=== PATIENT | female | born 2000 | race Caucasian/White ===

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

== ENCOUNTER → 2021-03-26 11:51 | Outpatient (CLI) | payer OTHER, SELFPAY ==
--- NOTE | 2021-03-26 12:01 | XR_ITS ---
PROCEDURE INFORMATION: Exam: XR Left Wrist Exam date and time: 03/26/2021 12:01 PM Age: 20 years old Clinical indication: Pain; Wrist; Left TECHNIQUE: Imaging protocol: XR Left wrist. Views: 1 or 2 views. COMPARISON: No relevant prior studies available. FINDINGS: Bones/joints: There is no evidence of acute fracture.There is no evidence of malalignment or dislocation. Soft tissues: Normal. IMPRESSION: There is no evidence of acute fracture.There is no evidence of malalignment or dislocation.
== END ==
PROVIDERS: PCP Nurse Practitioner Family; Referring Provider Nurse Practitioner; Visit Provider Nurse Practitioner Family
DX: M25.532 Pain in left wrist (principal)
CPT/HCPCS: 73100

== ENCOUNTER 2022-04-04 15:12 | Emergency (ER) | payer OTHER, SELFPAY ==
--- NOTE | 2022-04-04 15:20 | EXP.UTC ---
Discharge Plan Disposition Patient Disposition: Home, Self-Care Condition: Good Prescriptions Prescriptions: New phenazopyridine [Pyridium] 200 mg tablet 200 mg PO Q8H 2 Days Qty: 6 0RF sulfamethoxazole-trimethoprim [Bactrim DS] 800-160 mg Tablet 1 tab PO BID Qty: 14 0RF No Action montelukast 10 MG tablet 10 mg PO HS albuterol sulfate 8.5 GM HFA aerosol inhaler 1 puff PO Q4HP PRN (Reason: ALLERGIES) Label Comments: INHALE 1 OR 2 PUFFS EVERY 4 HOURS NEEDED loratadine 10 MG tablet 10 mg PO DAILY fluticasone furoate-vilanterol 1 EACH blister with device 1 puff PO DAILY Label Comments: INHALE 1 DOSE 1 TIME EACH DAY, AT THE SAME TIME EACH DAY. ibuprofen 600 MG tablet 600 mg PO Q6HP PRN (Reason: Mild Pain) Qty: 30 0RF Referrals Follow up/Referrals: Iris Olsen APRN [Primary Care Provider] - See instructions Activity Restrictions/Add. Instructions Additional Instructions/Restrictions: Drink plenty of fluids. Take tylenol or ibuprofen for pain or fever. Take the medications as directed. Follow up with your regular doctor. GO TO THE ER FOR ANY WORSENING SYMPTOMS RETURN AND GO TO THE ER FOR FURTHER EVALUATION IF YOUR PAIN OR SYMPTOMS WORSEN The pyridium will make your urine turn orange, this is an expected side effect. It will stain your clothes if it comes into contact with them. We will culture the urine. That will tell what bacteria is causing your infection and which antibiotics will treat it best. Sometimes the first antibiotic we prescribe turns out to not work against different bacteria. So, make sure you follow up within 3 days if you are not getting better. Clinical Impressions Clinical Impression: UTI (urinary tract infection) Discharge ED Provider: Crow Jaeger [facility] General Stated complaint: R side [id number] Time Seen by Provider: 04/04/22 16:00 History of Present Illness Provider Complaint: She has had right sided lower back pain for the past 2 days. She has also had urinary frequency and dysuria. Related Data Home Medications Medication Instructions Recorded Confirmed albuterol sulfate 90 mcg/actuation 1 puff PO Q4HP PRN ALLERGIES 07/10/19 07/10/19 aerosol inhaler fluticasone furoate 100 1 puff PO DAILY ALLERGIES 07/10/19 07/10/19 mcg-vilanterol 25 mcg/dose inhalation powder loratadine 10 mg tablet 10 mg PO DAILY ALLERGIES 07/10/19 07/10/19 montelukast 10 mg tablet 10 mg PO HS ALLERGIES 07/10/19 07/10/19 Previous Rx's Medication Instructions Recorded ibuprofen 600 mg tablet 600 mg PO Q6HP PRN Mild Pain #30 07/10/19 tabs phenazopyridine 200 mg tablet 200 mg PO Q8H 2 days #6 tabs 04/04/22 (Pyridium) sulfamethoxazole 800 1 tab PO BID #14 tabs 04/04/22 mg-trimethoprim 160 mg tablet (Bactrim DS) Allergies Allergy/AdvReac Type Severity Reaction Status Date / Time No Known Allergies Allergy Verified 04/04/22 15:50 PFSH PFSH Social History Smoking Status: Never smoker alcohol intake: never current occupational status: student Travel in the last 8 weeks: None ROS Obtained: Yes All systems reviewed & no additional complaints except as documented Constitutional Constitutional: Reports system reviewed and no additional complaints, except as documented, Denies chills and Denies fever(s) Eyes Eyes: Denies eye discharge ENT Ears, Nose, Mouth, and Throat: Denies dysphagia, Denies sore throat and Denies throat swelling Cardiovascular Cardiovascular: Denies chest pain and Denies dyspnea Respiratory Respiratory: Denies chest congestion, Denies cough and Denies dyspnea Gastrointestinal Gastrointestingal: Denies abdominal pain, constipation, diarrhea, dysphagia, nausea or vomiting Genitourinary Female Genitourinary: Reports as per HPI, Reports dysuria, Reports sexual dysfunction, Reports urinary frequency, Denies urinary incontinence and Reports urinary hesitancy Musculoske
[2022-04-04 15:48] VITALS: BP 125/68; PULSE 80; RESP 16; TEMP 36.9; O2SAT 99; BMI 35.4
[2022-04-04 15:55] LABS: Apearance,Urine Clear (Clear); Color,Urine Yellow (Yellow); PH,Urine 6.5 (5.0-8.5)
[2022-04-04 15:56] LABS: Bilirubin,Urine Negative (Negative); Blood, Urine 3+ (Negative); Glucose,Urine (UA) Negative (Negative); Ketones,Urine Negative (Negative); Protein,Urine Negative (Negative); Specific Gravity, Urine >= 1.030 (1.005-1.030); UTC Leukocyte Esterase,Urine 1+ (Negative); UTC Nitrate,Urine Negative (Negative); Urobilinogen,Urine 0.2 EU/dl (0.2)
[2022-04-04 16:41] VITALS: BP 125/68; PULSE 80; RESP 16; TEMP 36.9
== END 2022-04-04 16:45 | disposition home or self-care (01) ==
PROVIDERS: Emergency Provider Nurse Practitioner Family; PCP Nurse Practitioner
DX: N39.0 Urinary tract infection, site not specified (principal)
CPT/HCPCS: 81003; 87086; 99212; G0463

== ENCOUNTER → 2022-06-06 12:55 | Outpatient (CLI) | payer OTHER, SELFPAY ==
[2022-06-06 13:50] VITALS: PULSE 84; PULSE 87
== END ==
PROVIDERS: PCP Nurse Practitioner Family; Visit Provider Nurse Practitioner Family
DX: J45.909 Unspecified asthma, uncomplicated (principal)
CPT/HCPCS: 94060; 94618; 94640; 94727; 94729

== ENCOUNTER 2023-09-21 18:51 | Outpatient (CLI) | payer OTHER, SELFPAY ==
[2023-09-21 18:20] LABS: Basophils # 0.1 K/mm3 (0-0.2); Basophils % 0.8 % (0.1-2.0); Eosinophils # 1.1 K/mm3 (0.0-0.4); Eosinophils % 9.9 % (0.1-12.0); Hematocrit 44.6 % (37.0-47.0); Hemoglobin 14.8 g/dL (12.2-16.2); Lymphocytes # 2.8 K/mm3 (0.7-4.5); Mean Corpuscular HGB Conc 33.1 g/dL (31.8-35.4); Mean Corpuscular Hemoglobin 28.9 pg (27.0-31.2); Mean Corpuscular Volume 87.3 fl (81-99); Mean Platelet Volume 9.5 fl (7.4-10.4); Monocytes # 0.4 K/mm3 (0.1-1.0); Monocytes % 3.7 % (1.7-9.3); Neutrophils # 6.4 K/mm3 (1.8-7.8); Neutrophils % 59.5 % (37.0-80.0); Platelet Count 409 K/mm3 (142-424); Red Blood Count 5.11 M/mm3 (4.20-5.40); Red Cell Distribution Width 13.1 % (11.5-17.5); White Blood Count 10.7 K/mm3 (4.8-10.8)
[2023-09-21 18:38] LABS: Chloride 110 mmol/L (98-107); Potassium 4.4 mmoL/L (3.5-5.1); Sodium 140 mmol/L (136-145)
[2023-09-21 18:41] LABS: Alanine Aminotransferase 24 U/L (12-78); Albumin Level 4.5 g/dl (3.5-5.0); Albumin/Globulin Ratio 1.7 (1.1-1.8); Alkaline Phosphatase 72 U/L (38-126); Anion Gap 13.4 mEq/L (5-15); Aspartate Amino Transferase 30 U/L (14-36); Bilirubin,Total 0.5 mg/dl (0.2-1.3); Blood Urea Nitrogen 6 mg/dl (7-17); Calcium 9.4 mg/dl (8.4-10.2); Carbon Dioxide 21 mmol/L (22.0-30.0); Chol/HDL Ratio 4.9 (1-3.5); Cholesterol 165 mg/dl (140-200); Estimated Glomerular Filt Rate 104 ml/min (>60); GFR (African American) 125 ML/MIN (>60); Globulin 2.7 g/dL (1.3-3.2); Glucose 104 mg/dl (74-100); HDL Cholesterol 34 mg/dl (40-60); Total Protein,Serum 7.2 g/dl (6.3-8.2); Triglycerides 101 mg/dl (30-150); VLDL Cholesterol 20 mg/dL (0-40)
[2023-09-21 18:53] LABS: Direct LDL Cholesterol 99.97 mg/dL (100-129)
[2023-09-21 19:13] LABS: Thyroid Stimulating Hormone 1.32 uIU/mL (0.465-4.68)
== END 2023-09-21 23:59 ==
LOC: LAB.DROPOF 18:52
PROVIDERS: PCP Family Medicine; Visit Provider Family Medicine
DX: R30.0 Dysuria (principal); M54.50 Low back pain, unspecified; N39.0 Urinary tract infection, site not specified; B96.89 Other specified bacterial agents as the cause of diseases classified elsewhere; Z79.899 Other long term (current) drug therapy
CPT/HCPCS: 80053; 80061; 83036; 84443; 85025; 87086

== ENCOUNTER 2025-03-31 10:32 | Outpatient (CLI) | payer OTHER, SELFPAY ==
--- OUTSIDE RECORDS SUMMARY | 2025-04-01 08:54 | XMS_ITS | Clinical Summary ---
Author Organization [employer] ([place], [place], [place], [place]) Address [address] [place] [address] Care Team Providers Care Furniture Refinisher Name Role Phone Benedict Higginbotham APRN Primary Care Provider [phone] Allergies No known active allergies Medications No known medications Active Problems No known active problems Social History Tobacco Use Types Packs/Day Years Used Date Smoking Tobacco: Never Smokeless Tobacco: Never Tobacco Cessation:Counseling Given: Not Answered Alcohol Use Standard Drinks/Week Comments Never 0 (1 standard drink = 0.6 oz pur e alcohol) Family and Community Support Answer Anjel e Recorded Help with Day to Day Activities Not on file 07/21/2023 Feeling Lonely or Isolated Not on file 07/21 Educational Attainment Answer Date Adalberto rded Speak language other than Tajik at home Not on file 07/21/2023 Want help with school or training Not on file 07/21/2023 Substance Use Answer Date Recorded Used prescription meds for non-medical reasons N ot on file 07/21/2023 Used illegal drugs past 12 months Not on file 07/21/2023 Comments Unknown Sex and Gender Information Value Date Recorded Sex Assigned at Not on file 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 Gender Identity Not on file Sexual Orientation Not on file Last Filed Vital Signs Vital Sign Reading Time Taken Comments Blood Pressure 108/83 11/15/2023 3:12 PM EDT Pulse 78 11/15/2023 3:12 PM EDT Temperature 37.1 C (98.8 F) 11/15/2023 2:19 PM EDT Respiratory Rate 18 11/15/2023 3:12 PM EDT Oxygen Saturation 96% 11/15/2023 3:12 PM EDT Inhaled Oxygen Concentration - - Weight 90.7 kg (200 lb) 11/15/2023 2:19 PM EDT Height 160 cm (5' 3 ) 11/15/2023 2:19 PM EDT Body Mass Index 35.43 11/15/2023 2:19 PM EDT Plan of Treatment Health Maintenance Due Date Last Done Comments Depression Screening (12+) 2012 HIV Screening 2015 Hepatitis C Screening 2018 Lipid Panel 2020 Pap Smear 2021 Tobacco Cessation Counseling and Screening (12+) 11/14/2024 11/15/2023 COVID-19 VACCINE ( season) 2025 Influenza Vaccine (#1) 2025 04/21/2009 DTAP/TDAP/TD VACCINES (8 - Td or Tdap) 09/07/2027 09/06/2017, 05/15/2012, 08/11/2004, Additional history exists Pneumococcal Vaccine: 0-49 Years Aged Out 08/05/2001, 02/08/2001, 2000, Additional history exists No longer eligible based on patient's age to complete this topic Insurance [facility] Care Teams Furniture Refinisher Relationship Specialty Start Date End Date Benedict Higginbotham APRN [address] [place] [address] PCP - General Nurse Practitioner 11/06/23
--- OUTSIDE RECORDS SUMMARY | 2025-04-01 08:54 | XMS_ITS | Referral Summary ---
Author Organization [employer] ([place], [place], [place], [place]) Address [address] [place] [address] Care Team Providers Care Benefit Director Name Role Phone Benedict Higginbotham APRN Primary Care Provider [phone] Allergies No known active allergies Medications No [...] Date Adalberto rded Speak language other than Filipino at home Not on file 07/21/2023 Want help with school or training Not on file 07/21/2023 Substance Use Answer Date Recorded Used prescription meds for non-medical reasons N ot on file 07/21/2023 Used illegal drugs past 12 months Not on file 07/21/2023 Comments Unknown Sex and Gender Information Value Date Recorded Sex Assigned at Not on file 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
== END 2025-03-31 23:59 | disposition home or self-care (01) ==
LOC: LAB.DROPOF 04-01 08:52
PROVIDERS: PCP Nurse Practitioner Family; Visit Provider Nurse Practitioner Family
DX: N39.0 Urinary tract infection, site not specified (principal)
CPT/HCPCS: 87086; 87088